=== PATIENT | female | born 1950 | race Caucasian/White ===

== ENCOUNTER → 2016-12-17 | Outpatient (CLI) | payer MEDICARE, BC, OTHER | LOC: M LAB 13:42 | PROVIDERS: ATTEND Surgery | DX: C50.919 Malignant neoplasm of unspecified site of unspecified female breast (principal) ==

== ENCOUNTER → 2017-01-07 | Outpatient (REF) | payer MEDICARE, OTHER ==
[2017-01-07 14:08] LABS: INR 0.89
[2017-01-08 09:56] LABS: CARCINOEMBRYONIC ANTIGEN 5.5 NG/ML (<2.5)
== END ==
LOC: M LAB REF 13:40
PROVIDERS: ATTEND Internal Medicine Medical Oncology
DX: C50.919 Malignant neoplasm of unspecified site of unspecified female breast (principal); Z79.899 Other long term (current) drug therapy

== ENCOUNTER → 2017-01-16 | Outpatient (CLI) | payer MEDICARE, BC, OTHER ==
[~2017-01-16] MED LIST: LIDOCAINE W/EPINEPHRINE 1% 20ML VIAL As Ordered ONE; ceFAZolin 1GM INJ (J0690) As Ordered ONE
--- NOTE | 2017-01-16 19:07 | REPKIM ---
CLINICAL HISTORY: Bilateral breast ca, s/p mastectomy on the right and s/p recent carotid endarterectomy on the left. The referring service has asked a chest [id number] placement for chemotherapy. PROCEDURE PERFORMED: Placement of totally implantable venous access device under combined sonographic and fluoroscopic guidance INTERVENTIONALIST: Hilton Lugo MD CONSENT: The risks, benefits and alternatives to the procedure were explained to the patient and informed written consent was obtained. MEDICATIONS: Local Lidocaine and Ancef 1g IV. EBL: less than 10 mL FLUORO TIME: 0.5 minutes DEVICE USED: AngioMersive Low Profile Power Port 6.6-L[place]ian, Single-Lumen Lot# [id number] PROCEDURE/FINDINGS: The patient was brought to the interventional radiology suite and was positioned supine on the table. Time out procedure was performed. Real time ultrasound was used and permanent image stored. The right IJ vein is patent and compressible. Using ultrasound guidance the internal jugular vein was accessed with a micropuncture needle, after infiltration of the skin and deep tissues with local anesthetic. A peel-away sheath was placed. The catheter tip was inserted via the sheath under controlled respiration. The sheath was removed, and the catheter was flushed with heparinized saline and clamped. Next attention was turned to creation of a subcutaneous pocket for the port along the upper chest. The overlying skin and deep tissues were infiltrated with local anesthetic. A transverse skin incision was made long enough to accommodate the reservoir, and using blunt dissection a subcutaneous pocket was created. A tunnel was created from the pocket to the access site. A clamp was advanced from the pocket incision to the venous access site and used to grasp the free end of the catheter and pull it through to the pocket incision. The catheter was trimmed, attached to the reservoir, and flushed with heparinized saline. The reservoir was inserted into the pocket and secured with 2-0 absorbable sutures. The deep tissue was closed with interrupted 2-0 Vicryl suture. The skin incision was closed with a running subcuticular suture of 4-0 Vicryl. The venotomy incision was closed with 4-0 Vicryl suture. Mastisol and Steri-Strips were applied. The port was then accessed and Heparin (100 units/mL concentration) locked in the port. A sterile dressing was then applied. Post procedure chest spot film radiograph showed the tip of the catheter is at the SVC. The patient tolerated the procedure well with no immediate complications. This procedure was performed using ultrasound and fluoroscopy. Dr. Lugo was present. IMPRESSION: 1. The right IJ vein is patent and compressible. 2. Successful placement of right IJ chest port placement as discussed above. The chest [id number]-e-xegz is ready for use. cc: MD HU Ramirez
== END | disposition home or self-care (01) ==
LOC: M IRPRO 01-10 12:10
PROVIDERS: ATTEND Internal Medicine Medical Oncology
DX: C50.912 Malignant neoplasm of unspecified site of left female breast (principal); C50.911 Malignant neoplasm of unspecified site of right female breast
CPT/HCPCS: 36561; 76937; 77001; C1788; C1894; J0690

== ENCOUNTER → 2018-01-02 | Outpatient (REF) | payer MEDICARE, BC, OTHER | LOC: M LAB REF 19:22 | DX: L02.413 Cutaneous abscess of right upper limb (principal) | CPT/HCPCS: 87186 ==

== ENCOUNTER → 2018-04-15 | Outpatient (CLI) | payer MEDICARE, BC, OTHER | LOC: M PLARAD 07:35 | DX: C50.911 Malignant neoplasm of unspecified site of right female breast (principal); R59.0 Localized enlarged lymph nodes; R91.1 Solitary pulmonary nodule; Z90.11 Acquired absence of right breast and nipple | CPT/HCPCS: 78815 ==

== ENCOUNTER → 2019-04-13 | Outpatient (CLI) | payer MEDICARE, BC, OTHER ==
--- NOTE | 2019-04-14 08:50 | ECGEPIP ---
[facility] Test Date: 2019-04-13 Pat Name: ELENA RAMOS Department: Room: - Gender: Female Human Service Specialist: HERMAN : 1950 Requested By: KOKI Lerma Order Number: [id number] Reading MD: Juan Carlos Farrell Measurements Intervals [place] Rate: 68 P: 40 VA: 191 QRS: -2 QRSD: 106 T: 28 QT: 419 QTc: 448 Interpretive Statements SINUS RHYTHM Comparison tracing not on file Electronically Signed on 04-14-2019 8:50:20 EDT by Juan Carlos Farrell
== END ==
LOC: M EKG 09:20
PROVIDERS: ATTEND Orthopaedic Surgery Hand Surgery
DX: Z01.818 Encounter for other preprocedural examination (principal)

== ENCOUNTER → 2019-04-16 | Outpatient (REF) | payer MEDICARE, OTHER | LOC: M LAB REF 18:41 | PROVIDERS: ATTEND Orthopaedic Surgery Hand Surgery | DX: M72.0 Palmar fascial fibromatosis [Dupuytren] (principal) ==